=== PATIENT | female | born 1990 | race Two or more races ===

== ENCOUNTER 2016-09-04 14:34 | Emergency (ER) | payer MEDICAID ==
[~2016-09-04] VITALS: Ht 157.5 cm; Wt 52.2 kg
[~2016-09-04 14:34] MED LIST: PREN-129 OR
[2016-09-04 17:23] VITALS: BP 110/72
== END 2016-09-04 17:47 | disposition home or self-care (01) ==
LOC: ER 14:36
DX: S00.83XA Contusion of other part of head, initial encounter (principal); S40.022A Contusion of left upper arm, initial encounter; Y08.89XA Assault by other specified means, initial encounter; Y93.89 Activity, other specified; Y99.8 Other external cause status; Y92.89 Other specified places as the place of occurrence of the external cause
CPT/HCPCS: 70450; 70486; 73030; 73060